=== PATIENT | female | born 1950 | race Caucasian/White ===

== ENCOUNTER 2017-08-08 07:17 | Day surgery (SDC) | payer MEDICARE, BC ==
[~2017-08-08 07:17] MED LIST: Bupivacaine 0.25% 10 ML SDV ONE
[2017-08-08] MEDS ORDERED: ceFAZolin 1 GM Vial ONE (07:49)
[2017-08-08] MEDS ORDERED: Lactated Ringers 1,000 ML IV SCH (08:30)
[2017-08-08] MEDS ORDERED: Propofol 200 MG/20 ML SDV ONE (08:31)
[2017-08-08] MEDS ORDERED: Midazolam 1 MG/ML 2 ML SDV ONE (08:31)
[2017-08-08] MEDS ORDERED: fentaNYL 100 MCG/2 ML SDV ONE (08:31)
[2017-08-08] MEDS ORDERED: ceFAZolin 1 GM in Premix Bag 1 BAG IV ONE (09:00)
[2017-08-08 11:56] VITALS: BP 140/81
--- NOTE | 2017-08-09 09:25 | OR ---
DATE OF PROCEDURE: 08/08/2017 David seen today and had been having some trigger point on the right side, quite progressive in the last few months. Triggering on a daily basis. Clinically she was still having trigger effects and would like to proceed with surgery. She felt them on a daily basis and quite bothersome. I discussed with the patient possible risks, benefits, alternatives, and complications of surgery. The nature of the procedure was explained. All questions were answered. I had informed consent. The patient was brought to the OR. I did my markings of the right hand. She did receive antibiotics preoperatively. WEDDING DESIGNER proceeded with slight IV sedation. The patient was put on her back, and a tourniquet was applied to the right upper extremity. Sterile prep and dressing in the usual manner to the right hand. Time-out was taken to identify the correct surgical site. I did a local block with Marcaine 0.25 plain in the subcutaneous tissue at the A1 milton of her right thumb. The arm was elevated and the tourniquet was raised to 250 mmHg. A transverse incision is done at the base volar of the right thumb. About 1 cm of dissection was carried down directly in the central portion of the milton to avoid the neurovascular bundle of the lateral and medial area. Once the milton was identified, it was cut with the scalpel. The tendon was fine. It had good aligning without any triggering afterwards. The milton was quite thick, so this will certainly have some relief afterwards. The whole site was washed with saline. The skin was closed with nylon 3-0 simple suture. A compressive dressing was applied. Tourniquet was released. Blood loss was minimal. There were no complications. The patient tolerated the operation. She was sent to the recovery room in good condition. Kaiden Chandler MD /[id number]
== END 2017-08-08 11:50 | disposition home or self-care (01) ==
LOC: JP.SDS 07:17
PROVIDERS: ATTEND Orthopaedic Surgery
DX: M65.311 Trigger thumb, right thumb (principal); E78.5 Hyperlipidemia, unspecified; Z90.710 Acquired absence of both cervix and uterus; Z98.890 Other specified postprocedural states; Z79.899 Other long term (current) drug therapy; Z88.2 Allergy status to sulfonamides
CPT/HCPCS: 26055; J0690; J2250; J2704; J3010; J7120

== ENCOUNTER 2018-01-15 14:35 | Emergency (ER) | payer MEDICARE, BC ==
--- NOTE | 2018-01-15 15:21 | EDM.PDOC ---
ED HPI GENERAL MEDICAL PROBLEM - General Chief Complaint: Syncope Stated Complaint: [facility] Time Seen by Provider: 01/15/18 14:55 Source of Information: Reports: Patient, EMS, Family History Limitations: Reports: No Limitations - History of Present Illness INITIAL COMMENTS - FREE TEXT/NARRATIVE: 67-year-old female was brought in by ambulance after having a syncopal episode. She is usually very healthy, even participated in and exercise program for almost an hour earlier this afternoon. 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 She felt no shortness of breath, palpitations, chest pains or headache. She then became lightheaded so was going to sit down but the next thing she remembers she was lying on the ground. She did not get hurt. This has not happened to her in the past. EMS was evaluating her and felt she had an "irregular heartbeat" so felt she should be seen. She is now on the electronic device monitor and does appear to have somewhat of a sinus arrhythmia. Her main rhythm is normal sinus. Onset: Sudden Duration: Hour(s): (Within the last hour) Severity: Moderate Associated Symptoms: Reports: Diaphoresis, Malaise, Syncope, Weakness - Related Data Allergies Allergy/AdvReac Type Severity Reaction Status Date / Time Sulfa (Sulfonamide Allergy Rash Verified 01/15/18 14:46 Antibiotics) Home Meds: Home Meds Calcium Carbonate/Vitamin D3 [Caltrate-600 with Vit D Tab] 1 each PO DAILY 08/24 [History] Ibuprofen [Advil] 200 mg PO ASDIRECTED PRN 08/24/15 [History] Multivitamin with Minerals [Multiple Vitamin] 1 tab PO DAILY 08/24/15 [History] Past Medical History HEENT History: Reports: Impaired Vision Other HEENT History: wears contacts Cardiovascular History: Reports: Other (See Below) Other Cardiovascular History: murmur Gastrointestinal History: Reports: Hemorrhoids 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: Musculoskeletal History: Reports: Arthritis Neurological History: Reports: Concussion - Infectious Disease History Infectious Disease History: Reports: Chicken Pox, Measles, Mumps - Past Surgical History GI Surgical History: Reports: Colonoscopy Female Surgical History: Reports: Section, Hysterectomy Musculoskeletal Surgical History: Reports: Arthroscopic Knee Other Musculoskeletal Surgeries/Procedures:: right knee Social & Family History - Family History Cardiac: Reports: DE Respiratory: Reports: Asthma Neurological: Reports: CVA Hematologic: Reports: Other (See Below) Other Hematologic Family History: factor 8 deficiency - Tobacco Use Smoking Status *Q: Never Smoker Second Hand Smoke Exposure: No - Caffeine Use Caffeine Use: Reports: None - Recreational Drug Use Recreational Drug Use: No ED ROS GENERAL - Review of Systems Review Of Systems: See Below Constitutional: Reports: Malaise, Weakness HEENT: Reports: No Symptoms Respiratory: Denies: Shortness of Breath, Cough Cardiovascular: Denies: Chest Pain, Palpitations GI/Abdominal: Denies: Abdominal Pain, Nausea, Vomiting : Reports: No Symptoms Musculoskeletal: Reports: No Symptoms Skin: Reports: Pallor, Diaphoresis Neurological: Reports: Syncope, Other (She admits that she has been more tired than usual lately) Psychiatric: Reports: No Symptoms - Physical Exam Exam: See Below Exam Limited By: No Limitations General Appearance: Alert, No Apparent Distress Eye Exam: Bilateral Eye: Normal Inspection Head Exam: Atraumatic Neck: Normal Inspection Respiratory/Chest: No Respiratory Distress, Lungs Clear Cardiovascular: Regular Rate, Rhythm, Extra Beats (Occasional) GI/Abdominal: Soft, Non-Tender Neuro Exam (Abbreviated): Alert, Oriented, No Motor/Sensory Deficits Extremities: Normal Inspection. No: Pedal Edema Psychiatric: Normal Affect, Normal Mood Skin Exam: Warm, Dry, Other (Still slightly pale) Course - Vital Signs Last Recorded V/S: Last Vital Signs Temp 98.1 F 01/15/18 14:44 Pulse 58 L 01/15/18 15:54 Resp 13 01/15/18 15:54 BP 125/68 01/15/18 15:54 Pulse Ox 100 01/15/18 15:54 - Orders/Labs/Meds Labs: Laboratory Tests 01/15/18 01/15/18 01/15/18 Range/Units 15:35 15:35 15:35 WBC 6.7 (4.5-11.0) K/uL RBC 4.40 (3.30-5.50) M/uL Hgb 12.0 (12.0-15.0) g/dL Hct 36.7 (36.0-48.0) % MCV 83 (80-98) fL MCH 27 (27-31) pg MCHC 33 (32-36) % Plt Count 283 (150-400) K/uL Neut % (Auto) 67 H (36-66) % Lymph % (Auto) 22 L (24-44) % Bucks % (Auto) 9 H (2-6) % Eos % (Auto) 2 (2-4) % Baso % (Auto) 0 (0-1) % D-Dimer, Quantitative 607 H (0.0-400.0) ng/mL Sodium 143 (140-148) mmol/L Potassium 4.2 (3.6-5.2) mmol/L Chloride 107 (100-108) mmol/L Carbon Dioxide 27 (21-32) mmol/L Anion Gap 9.4 (5.0-14.0) mmol/L BUN 28 H (7-18) mg/dL Creatinine 0.9 (0.6-1.0) mg/dL Est Cr Clr Drug Dosing 48.80 mL/min Estimated GFR (MDRD) > 60 (>60) Glucose 90 (74-106) mg/dL Calcium 8.5 (8.5-10.1) mg/dL Total Bilirubin 0.3 (0.2-1.0) mg/dL AST 23 (15-37) U/L ALT 28 (12-78) U/L Alkaline Phosphatase 86 (46-116) U/L Troponin I < 0.017 (0.000-0.056) ng/mL Total Protein 6.5 (6.4-8.2) g/dL Albumin 3.4 (3.4-5.0) g/dL Globulin 3.1 (2.3-3.5) g/dL Albumin/Globulin Ratio 1.1 L (1.2-2.2) Free T4 (0.76-1.46) ng/dL Free T3 (2.18-3.98) pg/dL TSH, Ultra Sensitive 0.018 L (0.358-3.740) uIU/mL Thyroid Peroxidase Ab (0-34) IU/mL 01/15/18 01/15/18 Range/Units 16:19 16:26 WBC (4.5-11.0) K/uL RBC (3.30-5.50) M/uL Hgb (12.0-15.0) g/dL Hct (36.0-48.0) % MCV (80-98) fL MCH (27-31) pg MCHC (32-36) % Plt Count (150-400) K/uL Neut % (Auto) (36-66) % Lymph % (Auto) (24-44) % Bucks % (Auto) (2-6) % Eos % (Auto) (2-4) % Baso % (Auto) (0-1) % D-Dimer, Quantitative (0.0-400.0) ng/mL Sodium (140-148) mmol/L Potassium (3.6-5.2) mmol/L Chloride (100-108) mmol/L Carbon Dioxide (21-32) mmol/L Anion Gap (5.0-14.0) mmol/L BUN (7-18) mg/dL Creatinine (0.6-1.0) mg/dL Est Cr Clr Drug Dosing mL/min Estimated GFR (MDRD) (>60) Glucose (74-106) mg/dL Calcium (8.5-10.1) mg/dL Total Bilirubin (0.2-1.0) mg/dL AST (15-37) U/L ALT (12-78) U/L Alkaline Phosphatase (46-116) U/L Troponin I (0.000-0.056) ng/mL Total Protein (6.4-8.2) g/dL Albumin (3.4-5.0) g/dL Globulin (2.3-3.5) g/dL Albumin/Globulin Ratio (1.2-2.2) Free T4 1.40 (0.76-1.46) ng/dL Free T3 4.16 H (2.18-3.98) pg/dL TSH, Ultra Sensitive (0.358-3.740) uIU/mL Thyroid Peroxidase Ab 505 H (0-34) IU/mL - Re-Assessments/Exams Free Text/Narrative Re-Assessment/Exam: 01/15/18 15:23 She was kept on cardiac monitoring which mainly was a normal sinus rhythm with occasional sinus arrhythmia surfaced. No significant abnormalities were seen. A CBC, CMP, d-dimer and TSH were obtained along with troponin. 01/15/18 15:58 Over the course in the next hour she continued to feel better in fact was anxious to ambulate and have something to eat. Within a half-hour coming into the emergency room she was completely back to her baseline. TSH was low, ddimer slightly elevated. No physical signs of PE, I don't feel CT is warranted. Discussed with her primary care, further thyroid studies ordered and follow up in 3 days. Patient was asymptomatic at discharge. Departure - Departure Time of Disposition: 16:34 Disposition: Home, Self-Care 01 Condition: Good Clinical Impression: Vasovagal syncope - Discharge Information Instructions: Vasovagal Syncope, Adult Referrals: PCP,None [Primary Care Provider] - Forms: ED Department Discharge Care Plan Goals: Continue usual activity, recheck with Christie Echevarria on or return sooner if you develop more symptoms or other concerns.
[2018-01-15 15:54] VITALS: BP 125/68
== END 2018-01-15 16:35 | disposition home or self-care (01) ==
LOC: JP.ED 14:35
DX: R55 Syncope and collapse (principal); Z88.2 Allergy status to sulfonamides; Z79.899 Other long term (current) drug therapy
CPT/HCPCS: 36415; 80053; 84439; 84443; 84481; 84484; 85025; 85379; 86376; 99284

== ENCOUNTER 2021-11-22 13:35 | Emergency (ER) | payer MEDICARE, BC ==
[2021-11-22 15:00] VITALS: BP 154/76; PULSE 102
== END 2021-11-22 15:43 | disposition home or self-care (01) ==
LOC: JP.ED 13:35
DX: R07.89 Other chest pain (principal); E05.90 Thyrotoxicosis, unspecified without thyrotoxic crisis or storm; Z88.2 Allergy status to sulfonamides
CPT/HCPCS: 36415; 71046; 80053; 84484; 85025; 93005; 93010; 99282; 99285-25

== ENCOUNTER 2022-08-26 06:29 | Day surgery (SDC) | payer MEDICARE, BC ==
[2022-08-26] MEDS ORDERED: Sodium Chloride 0.9% 1,000 ML IV SCH (07:00)
[2022-08-26] MEDS ORDERED: Propofol 200 MG/20 ML SDV ONE (07:16)
[2022-08-26] MEDS ORDERED: fentaNYL 50 MCG/ML SDV ONE (07:16)
[2022-08-26 08:57] VITALS: BP 142/80; PULSE 55
== END 2022-08-26 09:00 | disposition home or self-care (01) ==
LOC: JP.SDS 06:29
PROVIDERS: ATTEND Surgery
DX: Z12.11 Encounter for screening for malignant neoplasm of colon (principal); K57.30 Diverticulosis of large intestine without perforation or abscess without bleeding; E78.5 Hyperlipidemia, unspecified; M81.0 Age-related osteoporosis without current pathological fracture; E05.90 Thyrotoxicosis, unspecified without thyrotoxic crisis or storm; Z79.899 Other long term (current) drug therapy; Z88.2 Allergy status to sulfonamides
CPT/HCPCS: G0121; J2704; J3010; J7030

== ENCOUNTER 2023-05-19 12:49 | Emergency (ER) | payer MEDICARE, BC ==
[2023-05-19 14:01] LABS: HEMOGLOBIN 12.3 g/dL (11.2-15.5); MEAN CORPUSCULAR HEMOGLOBIN 29.4 pg (31.6-35.5); MEAN CORPUSCULAR HGB CONC 33.2 g/dL (31.6-35.5); MEAN CORPUSCULAR VOLUME 88.5 fL (81.4-99.0); RED BLOOD CELL COUNT 4.18 M/uL (3.77-5.24); WHITE BLOOD CELL COUNT,WBC 5.7 K/uL (3.2-11.0)
[2023-05-19 14:02] LABS: BASE EXCESS VENOUS 0.7 mm/L; BICARBONATE,VENOUS 25.3 mmol/L; CARBOXYHEMOGLOBIN 1.4 % (0.0-1.6); O2 SATURATION VENOUS 44.6; OXYHEMOGLOBIN 43.5 %; PCO2 VENOUS 42.6 mm/Hg; TOTAL HEMOGLOBIN 12.9 g/dL (12.0-16.0)
[2023-05-19 14:21] LABS: PROTHROMBIN TIME 10.4 sec (9.2-10.6)
[2023-05-19 14:32] LABS: ALANINE AMINOTRANSFERASE,ALT 26 U/L (12-78); ALBUMIN 3.3 g/dL (3.4-5.0); ALKALINE PHOSPHATASE 97 U/L (46-116); ANION GAP 5.4 mmol/L (5.0-14.0); ASPARTATE AMNIOTRANSFERASE,AST 23 U/L (15-37); BILIRUBIN TOTAL 0.3 mg/dL (0.2-1.0); BLOOD UREA NITROGEN,BUN 30 mg/dL (7-18); CALCIUM 8.8 mg/dL (8.5-10.1); CARBON DIOXIDE,CO2 29 mmol/L (21-32); CHLORIDE,CL 107 mmol/L (100-108); CREATININE 0.7 mg/dL (0.6-1.0); EST CRCL DRUG DOSING (CG) 57.44 mL/min; ESTIMATED GFR 90 mL/min (>60); GLUCOSE RANDOM 79 mg/dL (74-106); POTASSIUM,K 4.2 mmol/L (3.6-5.2); PRO B-TYPE NATRIUR PEPT,BNPPRO 303 pg/mL (5-450); PROTEIN TOTAL,TP 6.7 g/dL (6.4-8.2); SODIUM,NA 141 mmol/L (140-148)
[2023-05-19 14:57] LABS: APPEARANCE,URINE SLIGHTLY CLOUDY (CLEAR); BILIRUBIN,URINE NEGATIVE (NEGATIVE); COLOR,URINE YELLOW (YELLOW); GLUCOSE,URINE NEGATIVE (NEGATIVE); KETONES,URINE NEGATIVE (NEGATIVE); LEUKOCYTE ESTERASE,URINE MODERATE (NEGATIVE); NITRITE,URINE NEGATIVE (NEGATIVE); OCCULT BLOOD,URINE NEGATIVE (NEGATIVE); PH,URINE 5.5 (5.0-8.0); PROTEIN,URINE NEGATIVE (NEGATIVE); UROBILINOGEN,URINE 0.2 EU/dL (0.2-1.0)
[2023-05-19 15:06] LABS: AMORPHOUS SEDIMENT,URINE NOT SEEN; BACTERIA,URINE MODERATE; EPITHELIAL CELLS,URINE FEW; MUCUS,URINE MANY; RBC,URINE 0-5 (0-5); WBC,URINE 20-30 (0-5)
[2023-05-19] MEDS: Sodium Chloride 0.9% 75 ML IV SCH (15:23)
[2023-05-19] MEDS: Iopamidol 755 Mg/ML 100 ML Bottle IV ONE (15:23)
[2023-05-19 16:25] VITALS: BP 175/73; PULSE 57
== END 2023-05-19 17:15 | disposition home or self-care (01) ==
LOC: JP.ED 12:49
DX: R09.1 Pleurisy (principal); Z79.899 Other long term (current) drug therapy; Z88.2 Allergy status to sulfonamides
CPT/HCPCS: 36415; 71046; 71275; 80053; 81001; 82803; 83605; 83880; 84484; 85027; 85379; 85610; 93005; 99285; J3490; Q9967; U0002